=== PATIENT | female | born 1980 | race Caucasian/White ===

== ENCOUNTER 2018-12-17 11:45 | Outpatient (CLI) | payer BC ==
--- NOTE | 2018-12-17 14:19 | CT ---
FCT abdomen and pelvis with IV contrast. Oral contrast was administered. INDICATIONS: Abdominal pain COMPARISON: None FINDINGS: Lung bases are clear Liver, spleen, and pancreas appear unremarkable. Stomach and duodenum appear unremarkable. Adrenal glands appear normal. Kidneys appear unremarkable. Collecting structures and urinary bladder appear unremarkable. Small bowel loops show nonspecific distention without dilatation. Appendix is identified and appears unremarkable. Colon is unremarkable. Aorta is normal caliber. No evidence of retroperitoneal or mesenteric adenopathy. Uterus is slightly prominent in size. Endometrial stripe appears prominent. There is a cystic mass in the right adnexa measuring 4 cm. This appear to be ovarian. Subcutaneous tissues, abdominal wall, and muscular structures appear unremarkable. Mild scoliotic curvature of the thoracolumbar spine. Osseous structures otherwise unremarkable. IMPRESSION: 1. Cystic mass in the right adnexa, presumably ovarian. Correlate with serum hCG level.
== END 2018-12-17 11:46 | disposition home or self-care (01) ==
LOC: SCSCT 11:45
PROVIDERS: ATTEND Family Medicine
DX: R10.31 Right lower quadrant pain (principal); N83.8 Other noninflammatory disorders of ovary, fallopian tube and broad ligament
CPT/HCPCS: 36415; 74177; 80053; 84702; 85025